=== PATIENT | female | born 1995 | race Hispanic/Latino ===

== ENCOUNTER → 2016-07-30 | Outpatient (CLI) | payer SELFPAY ==
[2016-08-13 17:04] LABS: HPV 16 Not Detected (NOTDET); HPV 18 Not Detected (NOTDET)
== END ==
LOC: MW.CHOBGYN 10:30
PROVIDERS: ATTEND Obstetrics & Gynecology
DX: Z39.2 Encounter for routine postpartum follow-up (principal)
CPT/HCPCS: 87624; G0145

== ENCOUNTER 2017-07-10 21:04 | Emergency (ER) | payer SELFPAY ==
--- NOTE | 2017-07-10 21:30 | EDM.PDOC ---
ED HPI GENERAL MEDICAL PROBLEM - General Chief Complaint: Headache Stated Complaint: HEADACHE Time Seen by Provider: 07/10/17 21:17 - History of Present Illness INITIAL COMMENTS - FREE TEXT/NARRATIVE: HISTORY AND PHYSICAL: History of present illness: The patient is a 22-year-old female with no stated medical problems and presents with a right-sided headache that has been ongoing for the last 1 week. The patient denies any fever chills your pain sore throat chest pain shortness of breath or vomiting and diarrhea. The patient has no history of headache syndromes and has had no recent trauma. The patient has been using over-the- counter Aleve on a semiregular basis and says it is not improving so she came in [facility]. She does not have a local provider. Patient also tells me that she' s had a lot of sinus congestion and she is blowing her nose a lot. She feels pain in the right side of her face along with the headache. She doesn't have any neck pain. She's not dizzy or lightheaded. Patient denies Review of systems: As per history of present illness and below otherwise all systems reviewed and negative. Past medical history: As per history of present illness and as reviewed below otherwise noncontributory. Surgical history: As per history of present illness and as reviewed below otherwise noncontributory. Social history: No reported history of drug or alcohol abuse. Family history: As per history of present illness and as reviewed below otherwise noncontributory. Physical exam: Gen.: Well-developed well-nourished female who is nontoxic and moves easily in the ED. Vital signs have been noted by me. HEENT: Atraumatic, normocephalic, pupils reactive, negative for conjunctival pallor or scleral icterus, mucous membranes moist, throat clear, neck supple, nontender, trachea midline. Nasal turbinates are boggy on the right side and there is discrete sinus tenderness in the frontal and maxillary sinuses on the right. There is clear nasal drainage seen Lungs: Clear to auscultation, breath sounds equal bilaterally, chest nontender. Heart: S1S2, regular rate and rhythm no overt murmurs Abdomen: Soft, nondistended, nontender. NABS Pelvis: Deferred Genitourinary: Deferred. Rectal: Deferred. Extremities: Atraumatic, negative for cords or calf pain. Neurovascular unremarkable. Neuro: Awake, alert, oriented. Cranial nerves II through XII unremarkable. Cerebellum unremarkable. Motor and sensory unremarkable throughout. Exam nonfocal. Diagnostics: [] Therapeutics: [] Impression: Right-sided headache/sinusitis Definitive disposition and diagnosis as appropriate pending reevaluation and review of above. 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: Musculoskeletal History: Reports: None Neurological History: Reports: None Psychiatric History: Reports: None Endocrine/Metabolic History: Reports: None Hematologic History: Reports: None Oncologic (Cancer) History: Reports: None Dermatologic History: Reports: None - Infectious Disease History Infectious Disease History: Reports: None - Past Surgical History Head Surgeries/Procedures: Reports: None Social & Family History - Family History Family Medical History: Noncontributory - Tobacco Use Smoking Status *Q: Never Smoker Second Hand Smoke Exposure: No - Caffeine Use Caffeine Use: Reports: Soda Caffeine Use Comment: Rarely - Recreational Drug Use Recreational Drug Use: No ED ROS GENERAL - Review of Systems Review Of Systems: ROS reveals no pertinent complaints other than HPI. ED EXAM, GENERAL - Physical Exam Exam: See Below (See dictation) Course - Vital Signs Last Recorded V/S: Last Vital Signs Temp 36.6 C 07/10/17 21:13 Pulse 106 H 07/10/17 21:13 Resp 18 07/10/17 21:13 BP 137/80 07/10/17 21:13 Pulse Ox 98 07/10/17 21:13 Departure - Departure Time of Disposition: 21:29 Disposition: Home, Self-Care 01 Condition: Good Clinical Impression: Sinusitis Headache Qualifiers: Headache type: unspecified Headache chronicity pattern: acute headache - Discharge Information Referrals: PCP,None [Primary Care Provider] - Additional Instructions: The following information is given to patients seen in the emergency department who are being discharged to home. This information is to outline your options for follow-up care. We provide all patients seen in our emergency department with a follow-up referral. The need for follow-up, as well as the timing and circumstances, are variable depending upon the specifics of your emergency department visit. If you don't have a primary care physician on staff, we will provide you with a referral. We always advise you to contact your personal physician following an emergency department visit to inform them of the circumstance of the visit and for follow-up with them and/or the need for any referrals to a consulting specialist. The emergency department will also refer you to a specialist when appropriate. This referral assures that you have the opportunity for followup care with a specialist. All of these measure are taken in an effort to provide you with optimal care, which includes your followup. Under all circumstances we always encourage you to contact your private physician who remains a resource for coordinating your care. When calling for followup care, please make the office aware that this follow-up is from your recent emergency room visit. If for any reason you are refused follow-up, please contact the [facility] emergency department at and ask to speak to the emergency department charge nurse. [facility] Primary care- Internal Medicine and Family [facility] [address] Please use [id number] Claritin/Benadryl/[place] to help dry out the sinus fluid. Please continue to use Aleve [id number] and add Tylenol as you choose [id number]. Please use the tramadol for pain you have been given via [facility] only when you're at home. Please take antibiotics until they are finished. Please call and follow-up with one of our clinic provider is in the next few days for reevaluation and further care and return to ER as needed and as discussed
[2017-07-10 21:59] VITALS: BP 117/62
== END 2017-07-10 21:57 | disposition home or self-care (01) ==
LOC: MW.ED 21:04
DX: J32.9 Chronic sinusitis, unspecified (principal)
CPT/HCPCS: 99282

== ENCOUNTER 2018-02-07 16:13 | Emergency (ER) | payer BC ==
[2018-02-07] MEDS ORDERED: Sodium Chloride 0.9% 2.5 ML Syringe FLUSH PRN (17:20)
[2018-02-07] MEDS ORDERED: Sodium Chloride 0.9% 1,000 ML IV ONE (17:20)
[2018-02-07] MEDS ORDERED: Morphine 2 MG/ML Syringe IVPUSH ONE (17:20)
[2018-02-07] MEDS ORDERED: Sodium Chloride 0.9% 10 ML Syringe FLUSH PRN (17:20)
[2018-02-07] MEDS ORDERED: Ondansetron 4 MG/2 ML SDV IVPUSH ONE (17:20)
--- NOTE | 2018-02-07 17:30 | EDM.PDOC ---
ED HPI GENERAL MEDICAL PROBLEM - General Chief Complaint: Respiratory Problem Stated Complaint: PT HAS SINUS INFECTION AND 9WKS Time Seen by Provider: 02/07/18 16:31 Source of Information: Reports: Patient History Limitations: Reports: No Limitations - History of Present Illness INITIAL COMMENTS - FREE TEXT/NARRATIVE: History of present illness: []Patient is 10 weeks and followed by Andria Rogel. She presents today with right-sided headache. She denies any blurry vision, vomiting, fevers or chills. She had similar symptoms lately and was seen here in the ED and treated for sinusitis. Patient states that the medicine did not help her. She denies any abdominal pain, vaginal bleeding or cramping. Review of systems: As per history of present illness and below otherwise all systems reviewed and negative. Past medical history: As per history of present illness and as reviewed below otherwise noncontributory. Surgical history: As per history of present illness and as reviewed below otherwise noncontributory. Social history: No reported history of drug or alcohol abuse. Family history: As per history of present illness and as reviewed below otherwise noncontributory. Physical exam: General: Well developed, well nourished in NAD HEENT: Atraumatic, normocephalic, pupils reactive, negative for conjunctival pallor or scleral icterus, mucous membranes moist, throat clear, no exudate, neck supple, no rigidity, nontender, trachea midline. No sinus tenderness to palpation, TMs clear Lungs: Clear to auscultation, breath sounds equal bilaterally, chest nontender. Heart: S1S2, regular, negative for clicks, rubs, or JVD. Abdomen: Soft, nondistended, nontender. Heart tones by Doppler is positive at 173 bpm. Negative for masses or hepatosplenomegaly. Negative for costovertebral tenderness. Pelvis: Stable nontender. Genitourinary: Deferred. Rectal: Deferred. Extremities: Atraumatic, negative for cords or calf pain. Neurovascular unremarkable. Neuro: Awake, alert, oriented. Cranial nerves II through XII unremarkable. Cerebellum unremarkable. Motor and sensory unremarkable throughout. Exam nonfocal. Skin:warm and dry Diagnostics: None Therapeutics: IV hydration, morphine for pain and Zofran for nausea ED Course: Improved with hydration and pain meds. Headache completely resolved Impression: Migraine headache Prescriptions: None Plan: Follow up with women's health Definitive disposition and diagnosis as appropriate pending reevaluation and review of above. 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: Musculoskeletal History: Reports: None Neurological History: Reports: None Psychiatric History: Reports: None Endocrine/Metabolic History: Reports: None Hematologic History: Reports: None Oncologic (Cancer) History: Reports: None Dermatologic History: Reports: None - Infectious Disease History Infectious Disease History: Reports: None - Past Surgical History Head Surgeries/Procedures: Reports: None Social & Family History - Family History Family Medical History: Noncontributory - Tobacco Use Smoking Status *Q: Never Smoker Second Hand Smoke Exposure: No - Caffeine Use Caffeine Use: Reports: Soda Caffeine Use Comment: Rarely - Recreational Drug Use Recreational Drug Use: No ED ROS GENERAL - Review of Systems Review Of Systems: ROS reveals no pertinent complaints other than HPI. ED EXAM, GENERAL - Physical Exam Exam: See Below (See history of present illness) Course - Vital Signs Last Recorded V/S: Last Vital Signs Temp 98.6 F 02/07/18 17:00 Pulse 105 H 02/07/18 18:23 Resp 18 02/07/18 18:23 BP 130/74 02/07/18 18:23 Pulse Ox 99 02/07/18 18:23 - Orders/Labs/Meds Orders: Active Orders 24 hr Category Date Time Status Sodium Chloride 0.9% [Saline Flush] Med 02/07/18 17:20 Active 10 ml FLUSH ASDIRECTED PRN Sodium Chloride 0.9% [Saline Flush] Med 02/07/18 17:20 Active 2.5 ml FLUSH ASDIRECTED PRN Saline Lock Insert [OM.PC] Stat Oth 02/07/18 17:20 Ordered Medication Orders Sodium Chloride (Saline Flush) 10 ml FLUSH ASDIRECTED PRN PRN Reason: Keep Vein Open Last Admin: 02/07/18 17:40 Dose: 10 ml Sodium Chloride (Saline Flush) 2.5 ml FLUSH ASDIRECTED PRN PRN Reason: Keep Vein Open Last Admin: 02/07/18 17:41 Dose: 2.5 ml Meds: Medications Generic Name Dose Route Start Last Admin Trade Name Freq PRN Reason Stop Dose Admin Sodium Chloride 10 ml 02/07/18 17:20 02/07/18 17:40 Saline Flush FLUSH 10 ml ASDIRECTED PRN Administration Keep Vein Open Sodium Chloride 2.5 ml 02/07/18 17:20 02/07/18 17:41 Saline Flush FLUSH 2.5 ml ASDIRECTED PRN Administration Keep Vein Open Discontinued Medications Generic Name Dose Route Start Last Admin Trade Name Freq PRN Reason Stop Dose Admin Sodium Chloride 1,000 mls @ 999 mls/hr 02/07/18 17:20 02/07/18 17:46 Normal Saline IV 02/07/18 18:20 999 mls/hr .Bolus ONE Administration Morphine Sulfate 2 mg 02/07/18 17:20 02/07/18 17:49 Morphine IVPUSH 02/07/18 17:21 2 mg ONETIME ONE Administration Ondansetron HCl 4 mg 02/07/18 17:20 02/07/18 17:48 Zofran IVPUSH 02/07/18 17:21 4 mg ONETIME ONE Administration Departure - Departure Time of Disposition: 18:30 Disposition: Home, Self-Care 01 Condition: Good Clinical Impression: Migraine headache Qualifiers: Migraine type: unspecified Status migrainosus presence: without status migrainosus Intractability: not intractable Qualified Code(s): G43.909 - Migraine, unspecified, not intractable, without status migrainosus - Discharge Information *PRESCRIPTION DRUG MONITORING PROGRAM REVIEWED*: No *COPY OF PRESCRIPTION DRUG MONITORING REPORT IN PATIENT ROHITH: No Referrals: PCP,None [Primary Care Provider] - Forms: ED Department Discharge Additional Instructions: The following information is given to patients seen in the emergency department who are being discharged to home. This information is to outline your options for follow-up care. We provide all patients seen in our emergency department with a follow-up referral. The need for follow-up, as well as the timing and circumstances, are variable depending upon the specifics of your emergency department visit. If you don't have a primary care physician on staff, we will provide you with a referral. We always advise you to contact your personal physician following an emergency department visit to inform them of the circumstance of the visit and for follow-up with them and/or the need for any referrals to a consulting specialist. The emergency department will also refer you to a specialist when appropriate. This referral assures that you have the opportunity for follow-up care with a specialist. All of these measure are taken in an effort to provide you with optimal care, which includes your follow-up. Under all circumstances we always encourage you to contact your private physician who remains a resource for coordinating your care. When calling for follow-up care, please make the office aware that this follow-up is from your recent emergency room visit. If for any reason you are refused follow-up, please contact the [facility] Emergency Department at and asked to speak to the emergency department charge nurse. [facility] Primary Care - Women's Health [address] [place] [address] - My Orders Last 24 Hours: My Active Orders 02/07/18 17:20 Sodium Chloride 0.9% [Saline Flush] 10 ml FLUSH ASDIRECTED PRN Sodium Chloride 0.9% [Saline Flush] 2.5 ml FLUSH ASDIRECTED PRN Saline Lock Insert [OM.PC] Stat - Assessment/Plan Last 24 Hours: My Active Orders 02/07/18 17:20 Sodium Chloride 0.9% [Saline Flush] 10 ml FLUSH ASDIRECTED PRN Sodium Chloride 0.9% [Saline Flush] 2.5 ml FLUSH ASDIRECTED PRN Saline Lock Insert [OM.PC] Stat
[2018-02-07 18:53] VITALS: BP 130/68
== END 2018-02-07 18:50 | disposition home or self-care (01) ==
LOC: MW.ED 16:13
DX: O99.351 Diseases of the nervous system complicating pregnancy, first trimester (principal); G43.909 Migraine, unspecified, not intractable, without status migrainosus; Z3A.10 10 weeks gestation of pregnancy
CPT/HCPCS: 96361; 96374; 96375; 99283; J2270; J2405; J7040

== ENCOUNTER 2018-08-28 20:16 | Inpatient (IN) | payer MEDICAID ==
[2018-08-28] MEDS ORDERED: Tranexamic Acid 1,000 MG in Sodium Chloride 0.9% 100 ML IV PRN (20:46)
[2018-08-28] MEDS ORDERED: Lidocaine 1% 50 ML MDV INJECT PRN (20:46)
[2018-08-28] MEDS ORDERED: Misoprostol 200 MCG Tab PO PRN (20:46)
[2018-08-28] MEDS ORDERED: Terbutaline 1 MG/ML SDV SUBCUT PRN (20:46)
[2018-08-28] MEDS ORDERED: Nalbuphine 10 MG/1 ML Vial IVPUSH PRN (20:46)
[2018-08-28] MEDS ORDERED: Ondansetron 4 MG/2 ML SDV IV PRN (20:46)
[2018-08-28] MEDS ORDERED: Carboprost Tromethamine 250 MCG/1 ML Amp IM PRN (20:46)
[2018-08-28] MEDS ORDERED: Water For Irrigation,Sterile 1,000 ML Container IRR PRN (20:46)
[2018-08-28] MEDS ORDERED: Sodium Chloride 0.9% 10 ML Syringe FLUSH PRN (20:46)
[2018-08-28] MEDS ORDERED: Sodium Chloride 0.9% 10 ML SDV IV PRN (20:46)
[2018-08-28] MEDS ORDERED: Methylergonovine 0.2 MG/1 ML Amp IM PRN (20:46)
[2018-08-28] MEDS ORDERED: Oxytocin/0.9 % Sodium Chloride 30 UNIT/500 ML BAG IV SCH ×2 (21:00)
[2018-08-28] MEDS: Misoprostol 25 MCG (1/4 of 100 MCG) Tab PO ONE (21:19)
[2018-08-28] MEDS: Misoprostol 25 MCG (1/4 of 100 MCG) Tab VAG PRN (21:20)
--- NOTE | 2018-08-29 01:16 | PCM.LDHP ---
L&D History of Present Illness - General Date of Service: 08/29/18 Admit Problem/Dx: Patient Status Order with Admit Dx/Problem 08/28/18 20:48 Patient Status [ADT] Routine Admission Diagnosis/Problem Admission Diagnosis/Problem -related examination Source of Information: Patient History Limitations: Reports: No Limitations - History of Present Illness Improves with: Reports: None Worsens with: Reports: None Associated Symptoms: Reports: N - Related Data Allergies/Adverse Reactions: Allergies Allergy/AdvReac Type Severity Reaction Status Date / Time No Known Allergies Allergy Verified 04/25/18 08:57 Home Medications: Home Meds Acetaminophen [Tylenol] 325 mg PO ASDIRECTED 02/07/18 [History] Pnv No.122/Iron/Folic Acid [ Multi Tablet] 1 tab PO ASDIRECTED 02/07/18 [History] Past Medical History - Past Health History Medical/Surgical History: Denies Medical/Surgical History HEENT History: Reports: None Cardiovascular History: Reports: None Respiratory History: Reports: None Gastrointestinal History: Reports: None Genitourinary History: Reports: None 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: Musculoskeletal History: Reports: None Neurological History: Reports: None Psychiatric History: Reports: None Endocrine/Metabolic History: Reports: None Hematologic History: Reports: None Immunologic History: Reports: None Oncologic (Cancer) History: Reports: None Dermatologic History: Reports: None - Infectious Disease History Infectious Disease History: Reports: None - Past Surgical History Head Surgeries/Procedures: Reports: None Social & Family History - Family History Family Medical History: Noncontributory - Tobacco Use Smoking Status *Q: Never Smoker Second Hand Smoke Exposure: No - Caffeine Use Caffeine Use: Reports: None Caffeine Use Comment: Rarely - Recreational Drug Use Recreational Drug Use: No H&P Review of Systems - Review of Systems: Review Of Systems: See Below General: Reports: No Symptoms HEENT: Reports: No Symptoms Pulmonary: Reports: No Symptoms Cardiovascular: Reports: No Symptoms Gastrointestinal: Reports: No Symptoms Genitourinary: Reports: No Symptoms Musculoskeletal: Reports: No Symptoms Skin: Reports: No Symptoms Psychiatric: Reports: No Symptoms Neurological: Reports: No Symptoms Hematologic/Lymphatic: Reports: No Symptoms Immunologic: Reports: No Symptoms L&D Exam - Exam Exam: See Below - Vital Signs Weight: 68.946 kg - OB Specific Fundal Height In cm: 38 Contraction Intensity: Mild Movement: Active Heart Tones: Present Presentation: Vertex - Freire Score Freire Score Cervix Position: Midposition Freire Score Consistency: Medium Freire Score Effacement: 31-50% Freire Score Dilation: 1-2 cm Freire Score Infant's Station: -3 Freire Score Total: 4 - Exam General: Alert, Oriented HEENT: PERRLA, Conjunctiva Clear, EACs Clear, EOMI, Hearing Intact, Mucosa Moist & Panther Burn, Nares Patent, Normal Nasal Septum, Posterior Pharynx Clear, TMs Clear Neck: Supple, Trachea Midline Lungs: Clear to Auscultation, Normal Respiratory Effort Cardiovascular: Regular Rate, Regular Rhythm GI/Abdominal Exam: Normal Bowel Sounds, Soft, Non-Tender, No Organomegaly, No Distention, No Abnormal Bruit, No Mass, Pelvis Stable Rectal Exam: Normal Exam, Normal Rectal Tone Genitourinary: Normal external exam, Normal bimanual exam, Normal speculum exam Back Exam: Normal Inspection, Full Range of Motion Extremities: Normal Inspection, Normal Range of Motion, Non-Tender, No Pedal Edema, Normal Capillary Refill Skin: Warm, Dry, Intact Neurological: Cranial Nerves Intact, Reflexes Equal Bilateral Psychiatric: Alert, Normal Affect, Normal Mood - Patient Data Lab Results Last 24 hrs: Laboratory Results - last 24 hr 08/28/18 08/28/18 Range/Units 21:02 21:02 WBC 10.44 (4.0-11.0) K/uL RBC 4.47 (4.30-5.90) M/uL Hgb 11.9 L (12.0-16.0) g/dL Hct 35.5 L (36.0-46.0) % MCV 79.4 L (80.0-98.0) fL MCH 26.6 L (27.0-32.0) pg MCHC 33.5 (31.0-37.0) g/dL RDW Std Deviation 45.4 (28.0-62.0) fl RDW Coeff of Mak 16 H (11.0-15.0) % Plt Count 152 (150-400) K/uL MPV 12.20 H (7.40-12.00) fL Nucleated RBC % 0.0 /100WBC Nucleated RBCs # 0 K/uL Blood Type O POSITIVE Antibody Screen NEGATIVE Result Diagrams: 08/28/18 21:02 Problem List Initiated/Reviewed/Updated: Yes Orders Last 24hrs: Active Orders 24 hr Category Date Time Status Patient Status [ADT] Routine ADT 08/28/18 20:48 Active Bedrest Bathroom Privileges [RC] ASDIRECTED Care 08/28/18 20:48 Active Communication Order [RC] ASDIRECTED Care 08/28/18 20:48 Active Communication Order [RC] ASDIRECTED Care 08/28/18 20:48 Active Communication Order [RC] ASDIRECTED Care 08/28/18 20:48 Active Heart Tones [RC] CONTINUOUS Care 08/28/18 20:48 Active Non Stress Test [RC] PER UNIT ROUTINE Care 08/28/18 20:48 Active May Shower [RC] ASDIRECTED Care 08/28/18 20:48 Active Notify Provider [RC] PRN Care 08/28/18 20:48 Active Notify Provider [RC] PRN Care 08/28/18 20:48 Active Notify Provider [RC] PRN Care 08/28/18 20:48 Active Notify Provider [RC] STAT Care 08/28/18 20:48 Active Oxygen Therapy [RC] ASDIRECTED Care 08/28/18 20:48 Active Up ad Alanis [RC] ASDIRECTED Care 08/28/18 20:48 Active Vaginal Exam [RC] PRN Care 08/28/18 20:48 Active Vaginal Exam [RC] PRN Care 08/28/18 20:48 Active Vital Signs [RC] PER UNIT ROUTINE Care 08/28/18 20:48 Active Vital Signs [RC] PER UNIT ROUTINE Care 08/28/18 20:48 Active Regular Diet [DIET] Diet 08/29/18 Breakfast Active Carboprost Tromethamine [Hemabate DS] Med 08/28/18 20:46 Active 250 mcg IM ASDIRECTED PRN Lactated Ringers [Ringers, Lactated] 1,000 ml Med 08/28/18 21:00 Active IV ASDIRECTED Lidocaine 1% [Xylocaine 1%] Med 08/28/18 20:46 Active 50 ml INJECT ONETIME PRN Methylergonovine [Methergine] Med 08/28/18 20:46 Active 0.2 mg IM ASDIRECTED PRN Nalbuphine [Nubain] Med 08/28/18 20:46 Active 10 mg IVPUSH Q1H PRN Ondansetron [Zofran] Med 08/28/18 20:46 Active 4 mg IV Q4H PRN Oxytocin/0.9 % Sodium Chloride [Oxytocin 30 Unit/500 ML Med 08/28/18 21:00 Active -NS] 30 unit in 500 ml IV TITRATE Oxytocin/0.9 % Sodium Chloride [Oxytocin 30 Unit/500 ML Med 08/28/18 21:00 Active -NS] 30 unit in 500 ml IV TITRATE Sodium Chloride 0.9% [Normal Saline] Med 08/28/18 20:46 Active 10 ml IV ASDIRECTED PRN Sodium Chloride 0.9% [Saline Flush] Med 08/28/18 20:46 Active 10 ml FLUSH ASDIRECTED PRN Terbutaline [Brethine] Med 08/28/18 20:46 Active 0.25 mg SUBCUT ASDIRECTED PRN Tranexamic Acid [Cyklokapron] 1,000 mg Med 08/28/18 20:46 Active Sodium Chloride 0.9% [Normal Saline] 100 ml IV ONETIME Water For Irrigation,Sterile [Sterile Water for Med 08/28/18 20:46 Active Irrigation] 1,000 ml IRR ASDIRECTED PRN miSOPROStol [Cytotec] Med 08/28/18 20:46 Active 200 mcg PO ONETIME PRN miSOPROStol [Cytotec] Med 08/28/18 20:46 Active 25 mcg VAG ONETIME PRN Scalp Electrode [WOMSER] Per Unit Routine Oth 08/28/18 20:48 Ordered Medication Administration Instruction [OM.PC] Q3H Oth 08/28/18 21:00 Ordered Peripheral IV Insertion Adult [OM.PC] Routine Oth 08/28/18 20:48 Ordered Resuscitation Status Routine Resus Stat 08/28/18 20:46 Ordered Medication Orders Carboprost Tromethamine (Hemabate Ds) 250 mcg IM ASDIRECTED PRN PRN Reason: Post Hemorrhage Lactated Ringer's (Ringers, Lactated) 1,000 mls @ 150 mls/hr IV ASDIRECTED MEME Oxytocin/Sodium Chloride (Oxytocin 30 Unit/500 Ml-Ns) 30 unit in 500 mls @ 999 mls/hr IV TITRATE MEME Oxytocin/Sodium Chloride (Oxytocin 30 Unit/500 Ml-Ns) 30 unit in 500 mls @ 2 mls/hr IV TITRATE MEME; Protocol Tranexamic Acid 1,000 mg/ (Sodium Chloride) 110 mls @ 660 mls/hr IV ONETIME PRN PRN Reason: Bleeding Lidocaine HCl (Xylocaine 1%) 50 ml INJECT ONETIME PRN PRN Reason: Laceration repair Methylergonovine Maleate (Methergine) 0.2 mg IM ASDIRECTED PRN PRN Reason: Post Hemorrhage Misoprostol (Cytotec) 200 mcg PO ONETIME PRN PRN Reason: Post Hemorrhage Misoprostol (Cytotec) 25 mcg VAG ONETIME PRN PRN Reason: Cervical Ripening Last Admin: 08/28/18 21:20 Dose: 25 mcg Nalbuphine HCl (Nubain) 10 mg IVPUSH Q1H PRN PRN Reason: Pain (severe 7-10) Ondansetron HCl (Zofran) 4 mg IV Q4H PRN PRN Reason: Nausea/Vomiting Sodium Chloride (Saline Flush) 10 ml FLUSH ASDIRECTED PRN PRN Reason: Keep Vein Open Last Admin: 08/28/18 21:02 Dose: 10 ml Sodium Chloride (Normal Saline) 10 ml IV ASDIRECTED PRN PRN Reason: IV Use Sterile Water (Sterile Water For Irrigation) 1,000 ml IRR ASDIRECTED PRN PRN Reason: delivery Terbutaline Sulfate (Brethine) 0.25 mg SUBCUT ASDIRECTED PRN PRN Reason: Tacysystole Assessment/Plan Comment:: [id number] admitted for elective induction of labor with Cytotec and pitocin.
[2018-08-29] MEDS ORDERED: Misoprostol 25 MCG (1/4 of 100 MCG) Tab ONE (01:42)
[2018-08-29] MEDS ORDERED: Misoprostol 50 MCG (1/2 of 100 MCG) Tab PO SCH (01:45)
[2018-08-29] MEDS ORDERED: Misoprostol 50 MCG (1/2 of 100 MCG) Tab VAG SCH (01:45)
[2018-08-29] MEDS: Misoprostol 25 MCG (1/4 of 100 MCG) Tab VAG PRN (01:51)
[2018-08-29] MEDS: Misoprostol 25 MCG (1/4 of 100 MCG) Tab PO ONE (01:53)
[2018-08-29] MEDS: Lactated Ringers 1,000 ML IV SCH ×3 (05:24→08:25)
--- NOTE | 2018-08-29 05:39 | PCM.PREANE ---
Preanesthetic Assessment - Anesthesia/Transfusion/Family Hx Anesthesia History: No Prior Anesthesia Family History of Anesthesia Reaction: No Transfusion History: No Prior Transfusion(s) - Review of Systems General: No Symptoms Pulmonary: No Symptoms Cardiovascular: No Symptoms Gastrointestinal: No Symptoms Neurological: No Symptoms Other: Reports: None - Physical Assessment Height: 4 ft 11 in Weight: 68.946 kg ASA Class: 2 Mental Status: Alert & Oriented x3 Airway Class: Mallampati = 2 Dentition: Reports: Normal Dentition Thyro-Mental Finger Breadths: 3 Mouth Opening Finger Breadths: 3 ROM/Head Extension: Full Lungs: Clear to Auscultation, Normal Respiratory Effort Cardiovascular: Regular Rate, Regular Rhythm - Lab Values: Laboratory Last Values WBC 10.44 K/uL (4.0-11.0) 08/28/18 21:02 RBC 4.47 M/uL (4.30-5.90) 08/28/18 21:02 Hgb 11.9 g/dL (12.0-16.0) L 08/28/18 21:02 Hct 35.5 % (36.0-46.0) L 08/28/18 21:02 MCV 79.4 fL (80.0-98.0) L 08/28/18 21:02 MCH 26.6 pg (27.0-32.0) L 08/28/18 21:02 MCHC 33.5 g/dL (31.0-37.0) 08/28/18 21:02 RDW Std Deviation 45.4 fl (28.0-62.0) 08/28/18 21:02 RDW Coeff of Mak 16 % (11.0-15.0) H 08/28/18 21:02 Plt Count 152 K/uL (150-400) 08/28/18 21:02 MPV 12.20 fL (7.40-12.00) H 08/28/18 21:02 Nucleated RBC % 0.0 /100WBC 08/28/18 21:02 Nucleated RBCs # 0 K/uL 08/28/18 21:02 Blood Type O POSITIVE 08/28/18 21:02 Antibody Screen NEGATIVE 08/28/18 21:02 - Allergies Allergies/Adverse Reactions: Allergies Allergy/AdvReac Type Severity Reaction Status Date / Time No Known Allergies Allergy Verified 11/27/18 08:57 - Acknowledgements Anesthesia Type Planned: Epidural Pt an Appropriate Candidate for the Planned Anesthesia: Yes Alternatives and Risks of Anesthesia Discussed w Pt/Guardian: Yes Pt/Guardian Understands and Agrees with Anesthesia Plan: Yes PreAnesthesia Questionnaire - Past Health History Medical/Surgical History: Denies Medical/Surgical History HEENT History: Reports: None Cardiovascular History: Reports: None Respiratory History: Reports: None Gastrointestinal History: Reports: GERD Genitourinary History: Reports: None [employer] History: Reports: : 2 Para: 1 LMP (Approximate): Musculoskeletal History: Reports: None Neurological History: Reports: None Psychiatric History: Reports: None Endocrine/Metabolic History: Reports: Obesity/BMI 30+ Hematologic History: Reports: None, Anemia Immunologic History: Reports: None Oncologic (Cancer) History: Reports: None Dermatologic History: Reports: None - Infectious Disease History Infectious Disease History: Reports: None - Past Surgical History Head Surgeries/Procedures: Reports: None - SUBSTANCE USE Smoking Status *Q: Never Smoker Tobacco Use Within Last Twelve Months: No Second Hand Smoke Exposure: No Recreational Drug Use History: No - HOME MEDS Home Medications: Home Meds Acetaminophen [Tylenol] 325 mg PO ASDIRECTED 02/07/18 [History] Pnv No.122/Iron/Folic Acid [ Multi Tablet] 1 tab PO ASDIRECTED 02/07/18 [History] - CURRENT (IN HOUSE) MEDS Current Meds: Current Medications Carboprost Tromethamine (Hemabate Ds) 250 mcg IM ASDIRECTED PRN PRN Reason: Post Hemorrhage Lactated Ringer's (Ringers, Lactated) 1,000 mls @ 150 mls/hr IV ASDIRECTED [facility] Last Admin: 08/29/18 05:24 Dose: 150 mls/hr Oxytocin/Sodium Chloride (Oxytocin 30 Unit/500 Ml-Ns) 30 unit in 500 mls @ 999 mls/hr IV TITRATE [facility] Oxytocin/Sodium Chloride (Oxytocin 30 Unit/500 Ml-Ns) 30 unit in 500 mls @ 2 mls/hr IV TITRATE [facility]; Protocol Tranexamic Acid 1,000 mg/ (Sodium Chloride) 110 mls @ 660 mls/hr IV ONETIME PRN PRN Reason: Bleeding Lidocaine HCl (Xylocaine 1%) 50 ml INJECT ONETIME PRN PRN Reason: Laceration repair Methylergonovine Maleate (Methergine) 0.2 mg IM ASDIRECTED PRN PRN Reason: Post Hemorrhage Misoprostol (Cytotec) 200 mcg PO ONETIME PRN PRN Reason: Post Hemorrhage Misoprostol (Cytotec) 25 mcg VAG ONETIME PRN PRN Reason: Cervical Ripening Last Admin: 08/29/18 01:51 Dose: 25 mcg Misoprostol (Cytotec) 25 mcg VAG Q4H [facility] Misoprostol (Cytotec) 25 mcg PO Q4H [facility] Nalbuphine HCl (Nubain) 10 mg IVPUSH Q1H PRN PRN Reason: Pain (severe 7-10) Ondansetron HCl (Zofran) 4 mg IV Q4H PRN PRN Reason: Nausea/Vomiting Sodium Chloride (Saline Flush) 10 ml FLUSH ASDIRECTED PRN PRN Reason: Keep Vein Open Last Admin: 08/28/18 21:02 Dose: 10 ml Sodium Chloride (Normal Saline) 10 ml IV ASDIRECTED PRN PRN Reason: IV Use Sterile Water (Sterile Water For Irrigation) 1,000 ml IRR ASDIRECTED PRN PRN Reason: delivery Terbutaline Sulfate (Brethine) 0.25 mg SUBCUT ASDIRECTED PRN PRN Reason: Tacysystole Discontinued Medications Misoprostol (Cytotec) 25 mcg PO ONETIME ONE Stop: 08/28/18 20:53 Last Admin: 08/29/18 01:53 Dose: 25 mcg Misoprostol (Cytotec) Confirm Administered Dose 25 mcg .ROUTE .STK-MED ONE Stop: 08/29/18 01:43
[2018-08-29] MEDS ORDERED: Misoprostol 25 MCG (1/4 of 100 MCG) Tab VAG SCH (07:45)
[2018-08-29] MEDS ORDERED: Misoprostol 25 MCG (1/4 of 100 MCG) Tab PO SCH (09:45)
[2018-08-29] MEDS ORDERED: Witch Hazel Medicated Pads 40/Jar TOP PRN (11:33)
[2018-08-29] MEDS ORDERED: Lanolin 100% Cream 7 GM Tube TOP PRN (11:33)
[2018-08-29] MEDS ORDERED: Ibuprofen 400 MG Tab PO PRN (11:33)
[2018-08-29] MEDS ORDERED: Docusate Sodium 100 MG Cap PO PRN (11:33)
[2018-08-29] MEDS ORDERED: Acetaminophen 500 MG Tab PO PRN ×2 (11:33)
[2018-08-29] MEDS ORDERED: oxyCODONE 5 MG Tab PO PRN (11:33)
[2018-08-29] MEDS ORDERED: Benzocaine/Menthol 20%-0.5% Spray 78 GM Cannister TOP PRN (11:33)
[2018-08-29] MEDS ORDERED: Bisacodyl 10 MG Supp RECTAL PRN (11:33)
--- NOTE | 2018-08-29 15:15 | OR ---
SURGEON: Jermaine Rudolph MD DATE OF PROCEDURE: Ms. Vallejo is 23-year-old patient, she is para 1-0-0-1. She is 40+ week. She is followed by our nurse Midwifery Service by Andria Rogel. She had an uncomplicated care. Her GBS status was negative. She is admitted for elective induction. She was induced with Cytotec and Pitocin. She responded to that very well. Early this morning at 8:30, she was 4 to 5 cm with a bulging bag of water. I did an artificial rupture of the membrane. The patient did not require Pitocin. She progressed nicely and she was able to accomplish normal spontaneous vaginal delivery of a male fetus. score reported to be 8 and 9. The placenta delivered spontaneous, complete, and intact and there was no perineal or labial laceration. There was no need for episiotomy. Estimated blood loss was 250 to 300 mL and heart rate was category 1 through the entire process of labor. There was no complication in this labor and delivery. MARY / SHAI /[id number]
[2018-08-29] MEDS: Ibuprofen 800 MG Tab PO PRN (18:56)
[2018-08-30] MEDS: Ibuprofen 800 MG Tab PO PRN ×2 (04:49→15:44)
--- NOTE | 2018-08-30 09:17 | PCM.PNPP ---
- General Info Date of Service: 08/30/18 Functional Status: Reports: Pain Controlled - Review of Systems General: Reports: No Symptoms HEENT: Reports: No Symptoms Pulmonary: Reports: No Symptoms Cardiovascular: Reports: No Symptoms Gastrointestinal: Reports: No Symptoms Genitourinary: Reports: No Symptoms Musculoskeletal: Reports: No Symptoms Skin: Reports: No Symptoms Neurological: Reports: No Symptoms Psychiatric: Reports: No Symptoms - General Info Date of Service: 08/30/18 - Patient Data Vital Signs - Most Recent: Last Vital Signs Temp 36.5 C 08/30/18 08:00 Pulse 72 08/30/18 08:00 Resp 16 08/30/18 08:00 BP 104/68 08/30/18 08:00 Pulse Ox 99 08/30/18 08:00 Weight - Most Recent: 68.946 kg Lab Results - Last 24 Hours: Laboratory Results - last 24 hr 08/30/18 Range/Units 05:08 Hgb 11.2 L (12.0-16.0) g/dL Hct 33.4 L (36.0-46.0) % Med Orders - Current: Current Medications Acetaminophen (Tylenol Extra Strength) 500 mg PO Q4H PRN PRN Reason: Pain Acetaminophen (Tylenol Extra Strength) 1,000 mg PO Q4H PRN PRN Reason: Pain Benzocaine/Menthol (Dermoplast Pain Relief 20%-0.5% [place]) 78 gm TOP ASDIRECTED PRN PRN Reason: Perineal Comfort Measure Bisacodyl (Dulcolax) 10 mg RECTAL ONETIME PRN PRN Reason: Constipation Carboprost Tromethamine (Hemabate Ds) 250 mcg IM ASDIRECTED PRN PRN Reason: Post Hemorrhage Docusate Sodium (Colace) 100 mg PO BID PRN PRN Reason: Constipation Emollient Ointment (Lansinoh Hpa) 0 gm TOP ASDIRECTED PRN PRN Reason: Sore Nipples Lactated Ringer's (Ringers, Lactated) 1,000 mls @ 150 mls/hr IV ASDIRECTED [facility] Last Admin: 08/29/18 08:25 Dose: 150 mls/hr Oxytocin/Sodium Chloride (Oxytocin 30 Unit/500 Ml-Ns) 30 unit in 500 mls @ 999 mls/hr IV TITRATE [facility] Oxytocin/Sodium Chloride (Oxytocin 30 Unit/500 Ml-Ns) 30 unit in 500 mls @ 2 mls/hr IV TITRATE [facility]; Protocol Tranexamic Acid 1,000 mg/ (Sodium Chloride) 110 mls @ 660 mls/hr IV ONETIME PRN PRN Reason: Bleeding Ibuprofen (Motrin) 400 mg PO Q4H PRN PRN Reason: Pain Ibuprofen (Motrin) 800 mg PO Q6H PRN PRN Reason: Pain Last Admin: 08/30/18 04:49 Dose: 800 mg Lidocaine HCl (Xylocaine 1%) 50 ml INJECT ONETIME PRN PRN Reason: Laceration repair Methylergonovine Maleate (Methergine) 0.2 mg IM ASDIRECTED PRN PRN Reason: Post Hemorrhage Misoprostol (Cytotec) 200 mcg PO ONETIME PRN PRN Reason: Post Hemorrhage Misoprostol (Cytotec) 25 mcg VAG ONETIME PRN PRN Reason: Cervical Ripening Last Admin: 08/29/18 01:51 Dose: 25 mcg Misoprostol (Cytotec) 25 mcg VAG Q4H [facility] Misoprostol (Cytotec) 25 mcg PO Q4H [facility] Nalbuphine HCl (Nubain) 10 mg IVPUSH Q1H PRN PRN Reason: Pain (severe 7-10) Ondansetron HCl (Zofran) 4 mg IV Q4H PRN PRN Reason: Nausea/Vomiting Oxycodone HCl (Oxycodone) 5 mg PO Q2H PRN PRN Reason: Pain Sodium Chloride (Saline Flush) 10 ml FLUSH ASDIRECTED PRN PRN Reason: Keep Vein Open Last Admin: 08/28/18 21:02 Dose: 10 ml Sodium Chloride (Normal Saline) 10 ml IV ASDIRECTED PRN PRN Reason: IV Use Sterile Water (Sterile Water For Irrigation) 1,000 ml IRR ASDIRECTED PRN PRN Reason: delivery Terbutaline Sulfate (Brethine) 0.25 mg SUBCUT ASDIRECTED PRN PRN Reason: Tacysystole Witch Ela (Tucks) 1 pad TOP ASDIRECTED PRN PRN Reason: comfort care Discontinued Medications Fentanyl/Bupivacaine HCl (Juhegggm-Mrcuy-No 2 Mcg/Ml-0.125%) Confirm Administered Dose 100 mls @ as directed .ROUTE .STK-MED ONE Stop: 08/29/18 05:45 Misoprostol (Cytotec) 25 mcg PO ONETIME ONE Stop: 08/28/18 20:53 Last Admin: 08/29/18 01:53 Dose: 25 mcg Misoprostol (Cytotec) 25 mcg VAG Q4H [facility] Misoprostol (Cytotec) 25 mcg PO Q4H [facility] Misoprostol (Cytotec) Confirm Administered Dose 25 mcg .ROUTE .STK-MED ONE Stop: 08/29/18 01:43 - Infant Interaction Infant Disposition, : in Room with Family Interaction: Holding Feeding: Attempted ; Nursed Fair/Poor Support Person: Significant Other - Recovery Exam Fundal Tone: Firm Fundal Level: At Umbilicus Fundal Placement: Midline Lochia Amount: Scant Lochia Color: Rubra/Red Perineum Description: Intact, Minimal Bruising/Swelling Episiotomy/Laceration: None Bladder Status: Nonpalpable, Voiding Urinary Elimination: Voided - Exam General: Alert, Oriented HEENT: Pupils Equal Neck: Supple Lungs: Clear to Auscultation, Normal Respiratory Effort Cardiovascular: Regular Rate, Regular Rhythm GI/Abdominal Exam: Normal Bowel Sounds, Soft, Non-Tender, No Organomegaly, No Distention, No Abnormal Bruit, No Mass, Pelvis Stable Extremities: Normal Inspection, Normal Range of Motion, Non-Tender, No Pedal Edema, Normal Capillary Refill Skin: Warm, Dry, Intact Wound/Incisions: Healing Well Neurological: No New Focal Deficit Psy/Mental Status: Alert, Normal Affect, Normal Mood - Problem List Review Problem List Initiated/Reviewed/Updated: Yes - My Orders Last 24 Hours: My Active Orders 08/29/18 09:45 miSOPROStol [Cytotec] 25 mcg PO Q4H 08/29/18 11:33 Patient Status [ADT] Routine May Shower [RC] ASDIRECTED Vital Signs [RC] PER UNIT ROUTINE Acetaminophen [Tylenol Extra Strength] 1,000 mg PO Q4H PRN Acetaminophen [Tylenol Extra Strength] 500 mg PO Q4H PRN Benzocaine/Menthol [Dermoplast Pain Relief 20%-0.5% [place]] 78 gm TOP ASDIRECTED PRN Bisacodyl [Dulcolax] 10 mg RECTAL ONETIME PRN Docusate Sodium [Colace] 100 mg PO BID PRN Ibuprofen [Motrin] 400 mg PO Q4H PRN Ibuprofen [Motrin] 800 mg PO Q6H PRN Lanolin [Lansinoh HPA] See Dose Instructions TOP ASDIRECTED PRN [place] Ela [Tucks] 1 pad TOP ASDIRECTED PRN oxyCODONE 5 mg PO Q2H PRN Assess Lochia [WOMSER] Per Unit Routine Assess Uterine Involution [WOMSER] Per Unit Routine Peripheral IV Discontinue [OM.PC] Routine - Assessment Assessment:: Status post normal spontaneous vaginal delivery doing well send the patient home today - Plan Plan:: [id number] admitted for elective induction of labor with Cytotec and pitocin.
[2018-08-31 04:34] VITALS: BP 116/67
--- NOTE | 2018-08-31 11:00 | PCM.DCSUM1 ---
Discharge Summary - Hospital Course Free Text/Narrative:: Discharge home with . Follow up in 6 weeks for . Diagnosis: Stroke: No - Discharge Data Discharge Date: 08/31/18 Discharge Disposition: Home, Self-Care 01 Condition: Good - Patient Instructions Diet: Usual Diet as Tolerated Activity: As Tolerated, No Strenuous Activities, Rest and Relax Today Driving: May Drive Today Showering/Bathing: May Shower Notify Provider of: Fever, Increased Pain, Nausea and/or Vomiting Other/Special Instructions: Discharge home with infant. Follow up in 6 weeks for . - Discharge Plan *PRESCRIPTION DRUG MONITORING PROGRAM REVIEWED*: Not Applicable *COPY OF PRESCRIPTION DRUG MONITORING REPORT IN PATIENT ROHITH: Not Applicable Home Medications: Home Meds Acetaminophen [Tylenol] 325 mg PO ASDIRECTED 02/07/18 [History] Pnv No.122/Iron/Folic Acid [ Multi Tablet] 1 tab PO ASDIRECTED 02/07/18 [History] Patient Handouts: Vaginal Delivery, Care After Referrals: [facility] [Outside] Andria Rogel CNM [Primary Care Provider] - 10/09/18 1:30 pm - Discharge Summary/Plan Comment DC Time >30 min.: Yes - General Info Date of Service: 08/31/18 Admission Dx/Problem (Free Text: Patient Status Order with Admit Dx/Problem 08/28/18 20:48 Patient Status [ADT] Routine Admission Diagnosis/Problem Admission Diagnosis/Problem -related examination Functional Status: Reports: Pain Controlled, Tolerating Diet, Ambulating, Urinating - Review of Systems General: Reports: No Symptoms HEENT: Reports: No Symptoms Pulmonary: Reports: No Symptoms Cardiovascular: Reports: No Symptoms Gastrointestinal: Reports: No Symptoms Genitourinary: Reports: No Symptoms Musculoskeletal: Reports: No Symptoms Skin: Reports: No Symptoms Neurological: Reports: No Symptoms Psychiatric: Reports: No Symptoms - Patient Data Vitals - Most Recent: Last Vital Signs Temp 36.5 C 08/31/18 04:00 Pulse 15 L 08/31/18 04:00 Resp 15 08/31/18 04:00 BP 116/67 08/31/18 04:00 Pulse Ox 96 08/31/18 04:00 Weight - Most Recent: 68.946 kg Med Orders - Current: Current Medications Acetaminophen (Tylenol Extra Strength) 500 mg PO Q4H PRN PRN Reason: Pain Acetaminophen (Tylenol Extra Strength) 1,000 mg PO Q4H PRN PRN Reason: Pain Benzocaine/Menthol (Dermoplast Pain Relief 20%-0.5% [place]) 78 gm TOP ASDIRECTED PRN PRN Reason: Perineal Comfort Measure Bisacodyl (Dulcolax) 10 mg RECTAL ONETIME PRN PRN Reason: Constipation Carboprost Tromethamine (Hemabate Ds) 250 mcg IM ASDIRECTED PRN PRN Reason: Post Hemorrhage Docusate Sodium (Colace) 100 mg PO BID PRN PRN Reason: Constipation Last Admin: 08/30/18 10:09 Dose: 100 mg Emollient Ointment (Lansinoh Hpa) 0 gm TOP ASDIRECTED PRN PRN Reason: Sore Nipples Last Admin: 08/30/18 15:30 Dose: 1 tube Lactated Ringer's (Ringers, Lactated) 1,000 mls @ 150 mls/hr IV ASDIRECTED [facility] Last Admin: 08/29/18 08:25 Dose: 150 mls/hr Oxytocin/Sodium Chloride (Oxytocin 30 Unit/500 Ml-Ns) 30 unit in 500 mls @ 999 mls/hr IV TITRATE [facility] Oxytocin/Sodium Chloride (Oxytocin 30 Unit/500 Ml-Ns) 30 unit in 500 mls @ 2 mls/hr IV TITRATE [facility]; Protocol Tranexamic Acid 1,000 mg/ (Sodium Chloride) 110 mls @ 660 mls/hr IV ONETIME PRN PRN Reason: Bleeding Ibuprofen (Motrin) 400 mg PO Q4H PRN PRN Reason: Pain Ibuprofen (Motrin) 800 mg PO Q6H PRN PRN Reason: Pain Last Admin: 08/30/18 15:44 Dose: 800 mg Lidocaine HCl (Xylocaine 1%) 50 ml INJECT ONETIME PRN PRN Reason: Laceration repair Methylergonovine Maleate (Methergine) 0.2 mg IM ASDIRECTED PRN PRN Reason: Post Hemorrhage Misoprostol (Cytotec) 200 mcg PO ONETIME PRN PRN Reason: Post Hemorrhage Misoprostol (Cytotec) 25 mcg VAG ONETIME PRN PRN Reason: Cervical Ripening Last Admin: 08/29/18 01:51 Dose: 25 mcg Misoprostol (Cytotec) 25 mcg VAG Q4H [facility] Misoprostol (Cytotec) 25 mcg PO Q4H [facility] Nalbuphine HCl (Nubain) 10 mg IVPUSH Q1H PRN PRN Reason: Pain (severe 7-10) Ondansetron HCl (Zofran) 4 mg IV Q4H PRN PRN Reason: Nausea/Vomiting Oxycodone HCl (Oxycodone) 5 mg PO Q2H PRN PRN Reason: Pain Sodium Chloride (Saline Flush) 10 ml FLUSH ASDIRECTED PRN PRN Reason: Keep Vein Open Last Admin: 08/28/18 21:02 Dose: 10 ml Sodium Chloride (Normal Saline) 10 ml IV ASDIRECTED PRN PRN Reason: IV Use Sterile Water (Sterile Water For Irrigation) 1,000 ml IRR ASDIRECTED PRN PRN Reason: delivery Terbutaline Sulfate (Brethine) 0.25 mg SUBCUT ASDIRECTED PRN PRN Reason: Tacysystole Witch Ela (Tucks) 1 pad TOP ASDIRECTED PRN PRN Reason: comfort care Discontinued Medications Fentanyl/Bupivacaine HCl (Tdyussxf-Qadwx-Ha 2 Mcg/Ml-0.125%) Confirm Administered Dose 100 mls @ as directed .ROUTE .STK-MED ONE Stop: 08/29/18 05:45 Misoprostol (Cytotec) 25 mcg PO ONETIME ONE Stop: 08/28/18 20:53 Last Admin: 08/29/18 01:53 Dose: 25 mcg Misoprostol (Cytotec) 25 mcg VAG Q4H [facility] Misoprostol (Cytotec) 25 mcg PO Q4H [facility] Misoprostol (Cytotec) Confirm Administered Dose 25 mcg .ROUTE .STK-MED ONE Stop: 08/29/18 01:43 - Exam General: Reports: Alert, Oriented, Cooperative, No Acute Distress Lungs: Reports: Normal Respiratory Effort (Female) Exam: Deferred, Vaginal Bleeding Rectal (Female) Exam: Deferred Back Exam: Reports: Normal Inspection, Full Range of Motion Extremities: Normal Inspection, Normal Range of Motion, Non-Tender, No Pedal Edema, Normal Capillary Refill Skin: Reports: Warm, Dry, Intact Neurological: Reports: No New Focal Deficit, Normal Speech, Normal Tone Psy/Mental Status: Reports: Alert, Normal Affect, Normal Mood
== END 2018-08-31 11:30 | disposition home or self-care (01) | DRG 807 ==
LOC: MW.OBCHECK 20:16 → MW.OB 20:27 → MW.OBCHECK 20:48 → OBSVTOIN 08-29 11:27 → MW.OB 08-29 17:15
PROVIDERS: ADMIT Obstetrics & Gynecology; ATTEND Obstetrics & Gynecology
PROC: 10E0XZZ Delivery of Products of Conception, External Approach (ICD-10-PCS; principal; 2018-08-29)
PROC: 10907ZC Drainage of Amniotic Fluid, Therapeutic from Products of Conception, Via Natural or Artificial Opening (ICD-10-PCS; principal; 2018-08-29)
PROC: 3E033VJ Introduction of Other Hormone into Peripheral Vein, Percutaneous Approach (ICD-10-PCS; principal; 2018-08-29)
PROC: 3E0P7VZ Introduction of Hormone into Female Reproductive, Via Natural or Artificial Opening (ICD-10-PCS; principal; 2018-08-29)
PROC: 00HU33Z Insertion of Infusion Device into Spinal Canal, Percutaneous Approach (ICD-10-PCS; 2018-08-29)
PROC: 3E0R3BZ Introduction of Anesthetic Agent into Spinal Canal, Percutaneous Approach (ICD-10-PCS; 2018-08-29)
DX: O48.0 Post-term pregnancy (principal); Z37.0 Single live birth; Z3A.40 40 weeks gestation of pregnancy; O99.214 Obesity complicating childbirth; E66.9 Obesity, unspecified; O99.62 Diseases of the digestive system complicating childbirth; K21.9 Gastro-esophageal reflux disease without esophagitis; O99.02 Anemia complicating childbirth; D64.9 Anemia, unspecified
CPT/HCPCS: 36415; 51702; 59025; 59409; 85014; 85018; 85027; 86850; 86900; 86901; A9270-GY; J7120